=== PATIENT | male | born 1960 | race Caucasian/White ===

== ENCOUNTER 2023-07-19 15:54 | Emergency (ER) | payer BC ==
[~2023-07-19] VITALS: Ht 185.4 cm; Wt 76.2 kg
[2023-07-19 15:54] VITALS: BP 121/75; PULSE 71; RESP 18; TEMP 98.6; O2SAT 96
[2023-07-19 16:56] VITALS: BP 119/71; PULSE 72; RESP 18; TEMP 98.6; O2SAT 96
== END 2023-07-19 16:57 | disposition home or self-care (01) ==
LOC: ER 15:54
DX: S81.812A Laceration without foreign body, left lower leg, initial encounter (principal); S89.92XA Unspecified injury of left lower leg, initial encounter; X58.XXXA Exposure to other specified factors, initial encounter; Y93.89 Activity, other specified; Y92.89 Other specified places as the place of occurrence of the external cause; Y99.8 Other external cause status
CPT/HCPCS: 12002; 99283